=== PATIENT | male | born 1980 | race Caucasian/White ===

== ENCOUNTER 2016-10-04 07:02 | Day surgery (SDC) | payer OTHER ==
[2016-09-29 11:18] LABS: HEMATOCRIT 45.3 % (37.9-51.0); HEMOGLOBIN 15.2 g/dL (13.5-17.0); HGB HCT DIFFERENCE 0.3; MEAN CORPUSCULAR HGB CONC 33.4 g/dL (32.0-36.0); MEAN CORPUSCULAR VOLUME 84 fl (80-97); RED BLOOD COUNT 5.42 10^6/uL (4.35-5.55); RED CELL DISTRIBUTION WIDTH 13.2 % (11.5-14.0); WHITE BLOOD COUNT 8.7 10^3/uL (4.0-10.5)
--- NOTE | 2016-10-03 12:41 | HISTORY AND PHYSICAL E ---
History and Physical NAME: SHANDA RAMSEY : 1980 AGE: 35Y ADMITTED: 10/04/2016 ROOM: CHIEF COMPLAINT: Diarrhea and abdominal pain. HISTORY OF PRESENT ILLNESS: Patient to undergo colonoscopy in the OR sometime early September or sooner pending scheduling. The patient is 35, [facility], awaking at night, bloating, sometimes blood in the stool, abdominal pain, reflux. PAST SURGICAL HISTORY: 1. Left eye surgery. 2. Right knee meniscus tear. 3. Fusion in 4-5, L3-L2. SOCIAL HISTORY: , does not smoke, does not drink. FAMILY HISTORY: Father is alive. Mom is alive. REVIEWING OF SYSTEMS: HEAD, EYES, EARS, NOSE, THROAT: Eyeglasses. Hearing aid. RESPIRATORY: Sleep apnea. CARDIAC: Negative. ENDOCRINE: Negative. GASTROINTESTINAL: Diarrhea, bloating, abdominal pain, reflux. NEUROPSYCHIATRIC: PTSD, trauma brain injury/TBI. PHYSICAL EXAMINATION: VITAL SIGNS: Blood pressure is 110/60. Pulse 80. Respirations 18. Temperature is 98. HEAD, EYES, EARS, NOSE, THROAT: Normal. NECK: Supple. CARDIOVASCULAR: Normal. LUNGS: Clear. ABDOMEN: Soft. NEUROLOGIC: Negative. CONCLUSION: 1. Diarrhea. 2. Blood in the stool. PLAN: Colonoscopy. The patient does have history of diarrhea, abdominal pain. Planned colonoscopy again scheduled for early September pending schedule availability. DICTATING PHYSICIAN: LUIZ PELAYO M.D. [id number] PHY#: [id number] ID: [id number] JOB#: [id number] ACCT: [id number] cc:LUIZ PELAYO M.D. >
[~2016-10-04 07:02] MED LIST: LACTATED RINGERS 1000 ML IV PRN; LIDOCAINE 0.5% INJ-PF (5 MG/ML) 50 ML SDV SUBCUT PRN
[2016-10-04] MEDS ORDERED: GLUCAGON,HUMAN RECOMB 1 MG INJ ONE (07:20)
[2016-10-04] MEDS ORDERED: LIDOCAINE 2% JELLY 30 ML TUBE ONE (07:20)
[2016-10-04] MEDS ORDERED: MIDAZOLAM 2 MG/2 ML INJ ONE (09:18)
[2016-10-04] MEDS ORDERED: PROPOFOL INJ 200 MG/20 ML VIAL IV ONE (09:19)
[2016-10-04] MEDS ORDERED: OXYCODONE-ACETAMINOPHEN 5-325 MG TABLET PO PRN ×2 (09:44)
[2016-10-04] MEDS ORDERED: FENTANYL CITRATE INJ/PF 100 MCG/2 ML AMPUL IV PRN ×3 (09:44)
[2016-10-04] MEDS ORDERED: MEPERIDINE HCL/PF INJ 25 MG/1 ML DISP.SYRIN IV PRN (09:44)
[2016-10-04] MEDS ORDERED: PROMETHAZINE HCL INJ 25 MG/1 ML VIAL IV PRN ×3 (09:44→10:45)
[2016-10-04] MEDS ORDERED: DIPHENHYDRAMINE HCL 50 MG/ML VIAL IV PRN (09:44)
[2016-10-04] MEDS ORDERED: MORPHINE SULFATE 10 MG/ML INJ IV PRN (09:44)
[2016-10-04] MEDS ORDERED: LIDOCAINE 2% VISCOUS SOLN 20 ML UDCUP PO PRN (10:21)
[2016-10-04] MEDS ORDERED: ACETAMINOPHEN 325 MG TABLET PO PRN (10:21)
--- NOTE | 2016-10-04 10:33 | OPERATIVE REPORT E ---
Operative Report NAME: SHANDA RAMSEY : 1980 AGE: 35Y DATE OF SURGERY: 10/04/2016 ROOM: PREOPERATIVE DIAGNOSES: 1. Rectal bleeding. 2. Blood in the stool. 3. Diarrhea. POSTOPERATIVE DIAGNOSES: 1. Inadequate prep. Colonoscopy to the cecum. No polyps. No bleeding. Only 1 isolated erosion in the rectum. 2. Mild external hemorrhoids. 3. Moderate amount of liquidy brown stool in the right colon. SURGEON: LUIZ PELAYO M.D. ANESTHESIA: Done in the OR with Anesthesia standby. TISSUE REMOVED OR ALTERED: Biopsy right colon for collagen colitis workup. DESCRIPTION OF PROCEDURE: Rectal exam: External hemorrhoids. Rectum, sigmoid descending colon normal. Transverse colon normal. Ascending cecum normal. Large amount of brown liquidy stool present in the cecum and the ascending colon. Scope withdrawn from cecum, ascending, transverse, descending, sigmoid all the way to the rectum. CONCLUSION: Colonoscopy done in the OR with anesthesia standby. Success to the cecum. No polyps. No malignancy. Mild external hemorrhoid. One isolated ecchymosis in the rectum. Inadequate prep. No polyps. No cancer. PLAN: Hold aspirin, nonsteroidal. Soft diet. Awaiting biopsy results. Followup office visit in the next few days. DICTATING PHYSICIAN: LUIZ PELAYO M.D. [id number] PHY#: [id number] ID: [id number] JOB#: [id number] ACCT: [id number] cc:[facility], LUIZ PELAYO M.D. >
--- NOTE | 2016-10-04 10:33 | HISTORY AND PHYSICAL E ---
History and Physical NAME: SHANDA RAMSEY : 1980 AGE: 35Y ADMITTED: 10/04/2016 ROOM: CHIEF COMPLAINT: Blood in the stool, diarrhea. A 35-year-old young male with diarrhea, bloating, blood in the stool, abdominal pain, reflux. SOCIAL HISTORY: . Does not smoke. Does not drink. ALLERGIES: Negative. PAST SURGICAL HISTORY: 1. Left eye surgery. 2. Right knee. 3. L3-L4. REVIEW OF SYSTEMS: RESPIRATORY: Sleep apnea. HEAD, EYES, EARS, NOSE AND THROAT: Eye glasses, hearing aid. CARDIAC: Negative. ENDOCRINE: Negative. GASTROINTESTINAL: Bloated, blood in the stool, abdominal pain. NEUROPSYCHIATRIC: TBI, PTSD. FAMILY HISTORY: Grandfather had history of colorectal lesion. Father is alive, mom is alive. The patient is on medication for anxiety and depression. PHYSICAL EXAMINATION: GENERAL: An alert, oriented 35-year-old. VITAL SIGNS: Blood pressure 110/60, pulse 80, respirations 18, temp 98. HEAD, EYES, EARS, NOSE AND THROAT: Normal. NECK: Neck is supple. LUNGS: Clear. ABDOMEN: Soft. NEUROLOGICAL: Exam negative. CONCLUSIONS: 1. Blood in the stool. 2. Diarrhea. 3. Abdominal pain. PLAN: Colonoscopy scheduled for tomorrow, 10/04/2016. DICTATING PHYSICIAN: LUIZ PELAYO M.D. [id number] PHY#: [id number] ID: [id number] JOB#: [id number] ACCT: [id number] cc:LUIZ PELAYO M.D. [place] >
[2016-10-04] MEDS ORDERED: SIMETHICONE 80 MG TAB.CHEW PO PRN (10:45)
[2016-10-04 11:05] LABS: ABSOLUTE EOSINOPHILS # (AUTO) 0.2 10^3/uL (0.0-0.6); ABSOLUTE LYMPHOCYTES (AUTO) 1.6 10^3/uL (0.5-4.7); ABSOLUTE MONOCYTES (AUTO) 0.4 10^3/uL (0.1-1.4); BASOPHILS % (AUTO) 0.4 % (0-2); EOSINOPHILS % (AUTO) 1.7 % (0-6); HEMATOCRIT 41.6 % (37.9-51.0); HEMOGLOBIN 14.2 g/dL (13.5-17.0); LYMPHOCYTES % (AUTO) 17.6 % (13-45); MEAN CORPUSCULAR HEMOGLOBIN 29.3 pg (27.0-33.4); MEAN CORPUSCULAR HGB CONC 34.3 g/dL (32.0-36.0); MEAN CORPUSCULAR VOLUME 86 fl (80-97); MONOCYTES % (AUTO) 4.5 % (3-13); RED BLOOD COUNT 4.85 10^6/uL (4.35-5.55); RED CELL DISTRIBUTION WIDTH 12.7 % (11.5-14.0); SEGMENTED NEUTROPHILS % (AUTO) 75.8 % (42-78); WHITE BLOOD COUNT 9.3 10^3/uL (4.0-10.5)
--- NOTE | 2016-10-04 11:13 | DISCHARGE SUMMARY E ---
Discharge Summary NAME: SHANDA RAMSEY : 1980 AGE: 35Y ADMITTED: 10/04/2016 DISCHARGED: 10/04/2016 PROCEDURE: Colonoscopy. HISTORY: Patient is a 35-year-old male referred to us for diarrhea and blood in the stool. He underwent colonoscopy today which was successful. Done in the OR with anesthesia standby. Patient had right knee surgery and L3-L4. He is . He does not drink. Patient presented with diarrhea, bloating, abdominal pain, reflux. He does have PTSD trauma and brain injury. Colonoscopy shows no polyps, no cancer. Mild external hemorrhoids. DISCHARGE PLAN: Soft low residue diet. We will obtain serology for IBD and serology for celiac disease. CBC and chem profile. Patient to see us in the office in the next few days. DICTATING PHYSICIAN: LUIZ PELAYO M.D. [id number] PHY#: [id number] ID: [id number] JOB#: [id number] ACCT: [id number] cc:[facility], LUIZ PELAYO M.D. >
[2016-10-04 11:18] LABS: ALANINE AMINOTRANSFERASE 35 U/L (21-72); ALBUMIN 4.3 g/dL (3.5-5.0); ALKALINE PHOSPHATASE 68 U/L (38-126); ANION GAP 10 (5-19); ASPARTATE AMINO TRANSFERASE 25 U/L (17-59); BILIRUBIN,DIRECT 0.2 mg/dL (0.0-0.4); BILIRUBIN,TOTAL 1.4 mg/dL (0.2-1.3); BLOOD UREA NITROGEN 7 mg/dL (7-20); CALCIUM 9.3 mg/dL (8.4-10.2); CARBON DIOXIDE 30 mmol/L (22-30); CHLORIDE 102 mmol/L (98-107); CREATININE RESULT 0.91 mg/dL (0.52-1.25); GLUCOSE 104 mg/dL (75-110); POTASSIUM 4.2 mmol/L (3.6-5.0); SODIUM 141.9 mmol/L (137-145); TOTAL PROTEIN 7.7 g/dL (6.3-8.2)
[2016-10-04 11:42] LABS: ERYTHROCYTE SEDIMENTATION RATE 22 mm/hr (0-15)
[2016-10-04 11:44] VITALS: BP 136/78
[2016-10-09 07:25] LABS: DEAMIDATED GLIADIN IGA AB 3 units (0-19); DEAMIDATED GLIADIN IGG AB 2 units (0-19); IMMUNOGLOBULIN A 2 155 mg/dL (90-386); T-TRANSGLUTAMINASE (TTG) IGG <2 U/mL (0-5)
== END 2016-10-04 11:30 | disposition home or self-care (01) ==
LOC: END 07:02
PROVIDERS: ATTEND Specialist
PROC: 0DBF8ZX Excision of Right Large Intestine, Via Natural or Artificial Opening Endoscopic, Diagnostic (ICD-10-PCS; principal; 2016-10-04 09:00)
DX: K62.89 Other specified diseases of anus and rectum (principal); K21.9 Gastro-esophageal reflux disease without esophagitis; K64.4 Residual hemorrhoidal skin tags; K63.3 Ulcer of intestine; K92.1 Melena
CPT/HCPCS: 45380; 86256; 36415 ×2; 85025; 85027; 85652; 80053; 83520 ×5; 88305 ×2; J2250; J1610; J2704; 810